=== PATIENT | male | born 1995 | race Asian ===

== ENCOUNTER 2022-02-26 10:46 | Emergency (ER) | payer MEDICAID, SELFPAY ==
[~2022-02-26] VITALS: Ht 170.2 cm; Wt 108.6 kg
[~2022-02-26 10:46] MED LIST: CYCL-394 PO; DIPH-423 PO; EPIN0.3P17 IM; FAMO-1 PO; NAPR-56 PO; PRED20TA PO
[2022-02-26] MEDS ORDERED: epiNEPHrine 1 mg/ml inj IM PRN (11:00)
[2022-02-26] MEDS: diphenhydrAMINE 50 mg/ml inj IV ONE (11:05)
[2022-02-26] MEDS: methylPREDNISolone sod succ 125mg/2ml vial IV ONE (11:07)
[2022-02-26] MEDS: famotidine/PF 10 mg/ml inj IV ONE (11:07)
--- NOTE | 2022-02-26 11:45 | NUR ---
pt resting in bed, states his throat feels better, but still feel swollen. will cont to monitor.
[2022-02-26] MEDS ORDERED: EPIN0.3P3 IM (12:18)
[2022-02-26 12:50] VITALS: BP 135/73
== END 2022-02-26 12:52 | disposition home or self-care (01) ==
LOC: ER 10:46
DX: T78.1XXA Other adverse food reactions, not elsewhere classified, initial encounter (principal); E78.00 Pure hypercholesterolemia, unspecified; L50.9 Urticaria, unspecified; R11.0 Nausea; Z79.899 Other long term (current) drug therapy; X58.XXXA Exposure to other specified factors, initial encounter; Y93.89 Activity, other specified; Y92.89 Other specified places as the place of occurrence of the external cause; Y99.8 Other external cause status
CPT/HCPCS: 96374; 96375; 99284; J1200; J2930; J3490

== ENCOUNTER 2023-12-18 19:42 | Emergency (ER) | payer MEDICAID ==
[~2023-12-18] VITALS: Ht 170.2 cm; Wt 109.1 kg
[~2023-12-18 19:42] MED LIST changes: +EPIN0.3P3 IM
[2023-12-18 20:19] VITALS: BP 144/76; PULSE 81; O2SAT 99
[2023-12-18] MEDS: cyclobenzaprine 10mg tablet PO ONE (21:19)
[2023-12-18] MEDS: LIDOcaine 5% patch TP ONE (21:20)
[2023-12-18 21:29] VITALS: RESP 16; TEMP 98.2
[2023-12-18] MEDS ORDERED: CYCL-1 PO (21:45)
[2023-12-18] MEDS ORDERED: HYDR-3965 PO (21:45)
[2023-12-18] MEDS ORDERED: LIDO700A32 TOP (21:45)
== END 2023-12-18 21:49 | disposition home or self-care (01) ==
LOC: ER 19:42
DX: M54.50 Low back pain, unspecified (principal); E78.00 Pure hypercholesterolemia, unspecified; Z91.013 Allergy to seafood; Z79.899 Other long term (current) drug therapy; V89.2XXA Person injured in unspecified motor-vehicle accident, traffic, initial encounter; Y93.89 Activity, other specified; Y92.89 Other specified places as the place of occurrence of the external cause; Y99.8 Other external cause status
CPT/HCPCS: 72074; 72100; 99284

== ENCOUNTER 2025-01-23 11:17 | Inpatient (IN) | payer OTHER, MEDICAID ==
[~2025-01-23] VITALS: Ht 170.2 cm; Wt 115.7 kg
[~2025-01-23 11:17] MED LIST changes: +CYCL-1 PO; +LIDO-52 TOP
--- NOTE | 2025-01-23 11:27 | Physician Documentation ---
History of Present Illness ~ Chief Complaint: Mental Health Eval Stated Complaint: MENTAL HEALTH EVAL Time Seen by MD: 11:24 Primary Medical Doctor: the medical center HPI 29-year-old male presenting with extreme depression and suicidal thoughts. Patient reports that he has a history of this however his symptoms significantly worsened since his dad this past October. Since that he has been having increasing suicidal thoughts and does not feel like he can go on anymore. As mentioned he does have a long history of this however he states that in his culture it is not appropriate to show any signs of emotional distress and he has been bottling it up this whole time. In 2014 he attempted to kill himself by hanging himself but states that the rope broke and it did not work. And that he denies any drug or alcohol use. Medication Reconciliation Allergies: Coded Allergies: shellfish derived (Unverified Allergy, Severe, 01/23/25) Scheduled Metformin Hcl (Metformin Hcl), 1 TAB PO DAILY, (Reported) Discontinued Medications Cyclobenzaprine HCl (Cyclobenzaprine HCl), 10 MG PO TID Discontinued Reason: Other Cyclobenzaprine* (Cyclobenzaprine*), 1 TAB PO HS Discontinued Reason: Other Diphenhydramine Hcl* (Benadryl*), 25 MG PO Q6H Discontinued Reason: Other Epinephrine (Epipen 2-Mike), 0.3 MG IM ONCE Discontinued Reason: Other Epinephrine (Epipen 2-Mike), 1 SYR IM ONCE PRN for allergies Discontinued Reason: Other Famotidine* (Pepcid*), 20 MG PO DAILY Discontinued Reason: Other Lidocaine (Lidoderm), 1 PATCH TOP DAILY Discontinued Reason: Other Naproxen (Naproxen), 500 MG PO Q12H Discontinued Reason: Other Prednisone* (Prednisone*), 40 MG PO DAILY Discontinued Reason: Other Prednisone* (Prednisone*), 60 MG PO DAILY Discontinued Reason: Other Past Medical History Past Medical History: High Cholesterol, Depression Past Surgical History: no surgical history Alcohol Use: None Drug Use: none Lives with: Mother Lives In: Home Occupation: student Review of Systems All Other Systems at this time: Reviewed and Negative Physical Exam Vital Signs: Temperature: 97.4, Source: Temporal, Heart Rate: 98, Respiratory Rate: 16, BP: 153/97, Pulse Oximetry: 99, Weight: 115.910 Oxygen Flow Rate: 0 Physical Exam I have reviewed the triage vitals. CONST: Well developed and well nourished. In no acute distress HENT: Head Atraumatic EYES: Pupils are equal, round and reactive to light. Normal conjunctiva NECK: Normal range of motion. Supple. CARDIO: Normal rate and regular rhythm. No murmurs, rubs, or gallops. S1, S2. PULM/CHEST: No respiratory distress. Lungs clear to auscultation. No wheeze ABD: Soft and nontender. Nondistended. Bowel sounds normal. No guarding. : Exam deferred MSK: No edema. No deformity. NEURO: Alert and oriented to person, place and time. Moving all extremities SKIN: Warm and dry. PSYCH: Normal mood and affect. Good eye contact. Progress Progress Note The patient is medically cleared. Results/Orders Results/Orders Orders - BRIANA FARAH MD 1799.11 (01/23/25 ) General Nursing Order (01/23/25 ) Completed Orders - BRIANA FARAH MD Cbc/Diff (01/23/25 11:24) MG (01/23/25 11:24) CMP (01/23/25 11:24) Drug Screen, Urine (01/23/25 11:24) Ethanol (01/23/25 11:24) Ua W/Microscopic, Cult If Ind (01/23/25 11:39) Regular Diet (01/23/25 Dinner) Lorazepam Tablet (Ativan Tablet) (01/23/25 13:45) Lorazepam Tablet (Ativan Tablet) (01/23/25 14:45) Vital Signs 01/23/25 01/23/25 11:19 11:56 Temp 97.4 Pulse 98 Resp 16 18 B/P (MAP) 153/97 Pulse Ox 99 O2 Flow Rate 0 Laboratory Tests Test 01/23/25 11:35 01/23/25 11:39 White Blood Count 7.4 Red Blood Count 6.67 H Hemoglobin 16.3 Hematocrit 50.3 Mean Corpuscular Volume 75.5 L Mean Corpuscular Hemoglobin 24.5 L Mean Corpuscular Hemoglobin Concent 32.4 L Red Cell Distribution Width 16.0 H Platelet Count 329 Mean Platelet Volume 8.4 Neutrophils (%) (Auto) 64.0 Lymphocytes (%) (Auto) 29.5 Monocytes (%) (Auto) 4.6 Eosinophils (%) (Auto) 1.2 Basophils (%) (Auto) 0.7 Neutrophils # (Auto) 4.8 Lymphocytes # (Auto) 2.2 Monocytes # (Auto) 0.3 Eosinophils # (Auto) 0.1 Basophils # (Auto) 0.0 CBC Comment Sodium Level 136 Potassium Level 4.3 Chloride Level 102 Carbon Dioxide Level 26.3 Anion Gap 8 Blood Urea Nitrogen 15 Creatinine 0.95 Estimated GFR/1.73 m2 > 90 BUN/Creatinine Ratio 15.8 Glucose Level 122 H Calcium Level 9.0 Magnesium Level 2.0 Total Bilirubin 1.2 H Aspartate Amino Transf (AST/SGOT) 36 Alanine Aminotransferase (ALT/SGPT) 96 H Alkaline Phosphatase 88 Total Protein 7.9 Albumin 3.7 Globulin 4.2 Albumin/Globulin Ratio 0.9 L Chemistry Comments Ethyl Alcohol Level < 10 Urine Specimen Description Cln catch midstream Urine Color Yellow Urine Clarity Clear Urine pH 6.0 Urine Specific Comer 1.025 Urine Protein >=300 H Urine Glucose (UA) Negative Urine Ketones Negative Urine Occult Blood Trace-intact Urine Nitrite Negative Urine Bilirubin Negative Urine Urobilinogen 0.2 Urine Leukocyte Esterase Negative Urine RBC 0-2 Urine WBC None seen Urine Squamous Epithelial Cells Few Urine Bacteria Few Urine Mucus Few Urine Culture Indicated Not ind Volume Urine Centrifuged 10 ml Urine Comment Urine Opiates Screen Negative Urine Methadone Screen Negative Urine Fentanyl Screen Negative Urine Barbiturates Screen Negative Urine Phencyclidine Screen Negative Urine Amphetamines Screen Negative Urine Benzodiazepines Screen Negative Urine Cocaine Screen Negative Urine Cannabinoids Screen Negative Drug Screen Comment Medical Decision Making Differential Diagnosis 29-year-old male presenting with suicidal ideations. His lab workup is unremarkable and the patient is medically cleared for psychiatric evaluation. Patient was assessed psychiatrically and admitted to the mental health unit. Departure Disposition: ADMITTED INPATIENT Impression: Primary Impression: Suicidal ideation Additional Impression: Depression Condition: Guarded Referrals: NO PRIMARY CARE PROVIDER (PCP) Critical Care Note Total Time (mins): 45 Critical Care Note The very real possibility of a deterioration of this patient's condition required the highest level of my preparedness for sudden, emergent intervention. I provided critical care services, which included medication orders, frequent reevaluations of the patient's condition and response to treatment, ordering and reviewing test results, and discussing the case with various consultants. Excludes time spent performing separately billable procedures. The critical care time associated with the care of the patient was. Signature Scribe Signature: 1 Attestation: 1 BRIANA FARAH MD Jan 23, 2025 11:27
[2025-01-23 11:53] LABS: MEAN PLATELET VOLUME 8.4 FL (7.4-10.4); RED CELL DISTRIBUTION WIDTH 16.0 % (11.5-14.5)
[2025-01-23 11:58] LABS: LEUKOCYTE ESTERASE ,URINE NEGATIVE (Neg); NITRITES, URINE NEGATIVE (Neg); OCCULT BLOOD,URINE TRACE-INTACT (Neg)
[2025-01-23 12:02] LABS: UA COLLECTION TYPE CLN CATCH MIDSTREAM
[2025-01-23 12:04] LABS: MUCUS STRANDS FEW /LPF (Neg); SQUAMOUS EPITHELIAL CELL,UR FEW /LPF (FEW)
[2025-01-23 12:07] LABS: CREATININE 0.95 MG/DL (0.60-1.10); TOTAL CARBON DIOXIDE 26.3 MMOL/L (24-32); eCRCL 107 ML/MIN; eGFR > 90 ML/MIN
[2025-01-23 12:11] LABS: ETHANOL < 10 MG/DL (<10)
[2025-01-23 12:13] LABS: URINE AMPHETAMINE SCREEN NEGATIVE (Neg); URINE BARBITUATE SCREEN NEGATIVE (Neg); URINE BENZODIAZEPINES SCREEN NEGATIVE (Neg); URINE CANNABINOID SCREEN NEGATIVE (Neg); URINE COCAINE SCREEN NEGATIVE (Neg); URINE METHADONE SCREEN NEGATIVE (Neg); URINE OPIATE SCREEN NEGATIVE (Neg); URINE PHENCYCLIDINE SCREEN NEGATIVE (Neg)
[2025-01-23] MEDS ORDERED: METF-900 PO (12:30)
[2025-01-23] MEDS ORDERED: METF-436 PO (20:18)
[2025-01-24] MEDS ORDERED: magnesium hydroxide 30ml (MOM) UD suspension PO PRN (01:15)
[2025-01-24] MEDS ORDERED: mag hydrox/Alum hydrox/simeth 30ml oral suspension PO PRN (01:15)
[2025-01-24] MEDS ORDERED: loperamide 2mg capsule PO PRN (01:15)
[2025-01-24] MEDS ORDERED: METF-1203 PO (06:38)
[2025-01-24] MEDS ORDERED: ATOR20TA66 PO (06:38)
[2025-01-24] MEDS ORDERED: OMEP20TA43 PO (06:39)
[2025-01-24 08:00] VITALS: BP 122/68; PULSE 90; RESP 12; TEMP 98; O2SAT 98
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
[2025-01-24] MEDS: BUPROPION HCL 150MG XL 24 HR 150 MG TAB PO SCH (09:24)
[2025-01-24 09:51] VITALS: RESP 12; O2SAT 98
[2025-01-24 19:00] VITALS: RESP 20; O2SAT 95
[2025-01-24 20:00] VITALS: BP 136/96; PULSE 98; RESP 18; TEMP 97.8; O2SAT 99
--- NOTE | 2025-01-24 22:09 | HISTORY AND PHYSICAL ---
History & Physical Providers to CC ~ History of Present Illness Reason for Admit\Complaint: Depression with suicidal ideation History of Present Illness This is the hospitalist history and physical exam on patients hospitalized at [facility]. The patient has no acute medical complaints is here due to severe depression since he lost his father in October of 2024. The patient did have a suicidal attempt in 2014 where he attempted to hang himself with was not successful as the rope broke Allergies: Coded Allergies: shellfish derived (Unverified Allergy, Severe, 01/23/25) Home Medications Home Medications Active Reported Omeprazole 20 Mg Tablet.dr 1 Tab PO DAILY Atorvastatin Calcium 20 Mg Tablet 1 Tab PO DAILY Metformin Hcl 500 Mg Tablet 1 Tab PO DAILY Past Medical History Past Medical History Hypogonadism Anxiety depression Prediabetes Hyperlipidemia Past Surgical History Surgical History Comment Bilateral earlobe keloid excision Ingrown toenail excision Family History Family History: FH: heart attack FATHER FHx: diabetes mellitus MOTHER Brother Brother Past Social History Social History Comment Does not smoke, drink alcohol, or use illicit drugs. ROS ROS Except for positives in the HPI the rest of the 14 point review systems is negative Exam Vitals: Vital Signs Date Time Temp Pulse Resp B/P (MAP) Pulse Ox O2 Delivery O2 Flow Rate FiO2 01/24/25 09:51 12 98 Room Air 01/24/25 08:00 98.0 90 122/68 (86) 01/23/25 18:06 0 General: Gen. No acute distress alert and oriented Lungs clear to ascultation bilaterally, no wheezes rales or rhonchi appreciated Heart normal sinus rhythm no murmurs rubs or clicks noted Abdomen soft nontender bowel sounds are normoactive Lower extremities no clubbing cyanosis, nor edema appreciated bilaterally Diagnostic Data Last Recorded Lab Results: 01/23/25 1135 01/23/25 1135 Advance Care Planning Advanced Care planning: N/A Problems: (1) Suicidal ideation Status: Acute Additional Plan # severe depression with suicidal ideation Followed by Psychiatry # hyperlipidemia Fasting lipid panel Continue atorvastatin # prediabetes Hemoglobin A1c is ordered # hypogonadism Stopped using testosterone replacement therapy recently. Hospitalist service will continue to follow the patient Date of Service: Jan 24, 2025 Billing Provider: NORMA PAUL DO Common Visit Codes: [id number] INP/OBS CARE (MOD) NORMA PAUL DO Jan 24, 2025 22:09
[2025-01-25 07:00] VITALS: BP 108/59; PULSE 65; RESP 16; TEMP 98; O2SAT 98
[2025-01-25 08:00] VITALS: RESP 16; RESP 20; O2SAT 95; O2SAT 98
[2025-01-25 11:46] LABS: MEAN PLATELET VOLUME 8.2 FL (7.4-10.4); RED CELL DISTRIBUTION WIDTH 16.3 % (11.5-14.5)
[2025-01-25 12:59] LABS: CHOL/HDL RATIO 5.8 (0.00-4.99); CREATININE 1.29 MG/DL (0.60-1.10); LDL CHOLESTEROL 133 MG/DL (50-100); TOTAL CARBON DIOXIDE 27.5 MMOL/L (24-32); eCRCL 79 ML/MIN; eGFR 66 ML/MIN
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
[2025-01-25 19:00] VITALS: RESP 18; O2SAT 99
[2025-01-25 20:00] VITALS: BP 135/87; PULSE 92; RESP 18; TEMP 98.2; O2SAT 99
[2025-01-26 07:00] VITALS: RESP 16; O2SAT 98
[2025-01-26 07:30] VITALS: BP 99/58; PULSE 65; RESP 16; TEMP 97.9; O2SAT 98
[2025-01-26] MEDS: BUPROPION HCL 150MG XL 24 HR 150 MG TAB PO SCH (07:38)
--- NOTE | 2025-01-26 07:58 | PROGRESS NOTE ---
Daily Progress Note Providers to CC ~ Antibiotic Timeout Antibiotic Ordered?: No Subjective Chief complaint I just feel really down Review of systems negative for all 10 systems reviewed Objective Vital Signs Date Time Temp Pulse Resp B/P (MAP) Pulse Ox O2 Delivery O2 Flow Rate FiO2 01/25/25 20:00 98.2 92 18 135/87 (103) 99 Room Air 01/23/25 18:06 0 Result Diagram: 01/25/25 1124 01/25/25 1124 HEENT normocephalic nontraumatic head PERRLA. EOMI. Gen. No acute distress alert and oriented Lungs clear to ascultation bilaterally, no wheezes rales or rhonchi appreciated Heart normal sinus rhythm no murmurs rubs or clicks noted Abdomen soft nontender bowel sounds are normoactive morbidly obese Lower extremities no clubbing cyanosis, nor edema appreciated bilaterally Problem\Assessment\Plan Problems/Diagnosis: (1) Suicidal ideation A/P (1) Suicidal ideation # severe depression with suicidal ideation Followed by Psychiatry # hyperlipidemia Fasting lipid panel Continue atorvastatin # prediabetes Hemoglobin A1c is ordered # hypogonadism Stopped using testosterone replacement therapy recently. Hospitalist service will continue to follow the patient Date of Service: Jan 26, 2025 Billing Provider: WILFREDO HERRMANN MD Common Visit Codes: [id number] INP/OBS CARE(LOW) WILFREDO HERRMANN MD Jan 26, 2025 07:58
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
[2025-01-26 19:00] VITALS: RESP 17
[2025-01-26 20:00] VITALS: RESP 17
[2025-01-27 07:30] VITALS: BP 112/58; PULSE 67; RESP 16; TEMP 98.3; O2SAT 96
[2025-01-27 08:00] VITALS: RESP 16; O2SAT 96
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
[2025-01-27 19:00] VITALS: RESP 16; O2SAT 97
[2025-01-27 20:00] VITALS: BP 141/69; PULSE 97; RESP 16; TEMP 98.3; O2SAT 96
[2025-01-28 07:00] VITALS: RESP 16; O2SAT 100
[2025-01-28 08:00] VITALS: BP 109/63; PULSE 77; RESP 14; TEMP 97.8; O2SAT 99
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
--- NOTE | 2025-01-28 18:48 | PROGRESS NOTE ---
Daily Progress Note Providers to CC ~ Antibiotic Timeout Antibiotic Ordered?: No Subjective Patient was seen in his room he was feeling better able to ambulate no new concerns Objective Vital Signs Date Time Temp Pulse Resp B/P (MAP) Pulse Ox O2 Delivery O2 Flow Rate FiO2 01/28/25 08:00 97.8 77 14 109/63 (78) 99 Room Air Result Diagram: 01/25/25 1124 01/25/25 1124 General-patient not in any acute distress, alert awake looks comfortable obese HEENT-atraumatic normocephalic, neck supple without elevated JVD, no thyromegaly or carotid bruit. No lymphadenopathy bilaterally. Eyes-no icterus or pallor seen in eyes Chest-clear to auscultation bilaterally, breathing nonlabored no tachypnea, no wheezing, no crepitation, no crackles. Heart-S1-S2 normal, regular heart rate no murmur Abdomen bowel sounds positive on auscultation, soft nondistended nontender no guarding, no rigidity Skin no active skin rash Neurology-grossly intact, nonfocal alert awake Extremity- no pedal edema able to move all 4 extremities Psychiatry - patient is not confused or agitated cooperated during physical examination Problem\Assessment\Plan Problems/Diagnosis: (1) Suicidal ideation (1) Suicidal ideation # severe depression with suicidal ideation Followed by Psychiatry # hyperlipidemia Fasting lipid panel Continue atorvastatin # prediabetes Hemoglobin A1c is 5.5 # hypogonadism Stopped using testosterone replacement therapy recently. Hospitalist service will continue to follow the patient Date of Service: Jan 28, 2025 Billing Provider: ARNAUD LIMA MD Common Visit Codes: [id number] INP/OBS CARE(LOW) ARNAUD LIMA MD Jan 28, 2025 18:48
[2025-01-28 19:00] VITALS: RESP 18; O2SAT 95
[2025-01-28 20:00] VITALS: BP 130/80; PULSE 96; RESP 18; TEMP 97.8; O2SAT 95
[2025-01-29 07:31] VITALS: RESP 14; O2SAT 97
[2025-01-29 08:00] VITALS: BP 97/47; PULSE 76; RESP 18; TEMP 98.9; O2SAT 95
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
[2025-01-29 19:30] VITALS: RESP 16; O2SAT 98
[2025-01-29 20:00] VITALS: BP 136/99; PULSE 90; RESP 16; TEMP 99.1; O2SAT 98
[2025-01-30 07:29] VITALS: RESP 16; O2SAT 97
[2025-01-30 08:00] VITALS: BP 116/71; PULSE 90; RESP 16; TEMP 97.6; O2SAT 94
[2025-01-30] MEDS ORDERED: BUPR300T53 PO (08:20)
[2025-01-30] MEDS ORDERED: QUET50TA24 PO (08:20)
[2025-01-30] MEDS ORDERED: ARIP5TAB53 PO (08:20)
--- NOTE | 2025-01-30 08:26 | DISCHARGE SUMMARY ---
Discharge Summary Providers to CC ~ Discharge Summary Admission Diagnosis: Depression Hospital Course DATE OF ADMISSION: 01/23/25 DATE OF DISCHARGE: 01/30/25 Condition on DC: Stable 2 or more antipsychotic used: Yes 2/more antipsychotic addressed: Yes Does Patient smoke: No Smoking education given.: No *Problems/Diagnosis: (1) Depression Status: Resolved (2) Suicidal ideation Status: Acute Total Time Spent on D/C: > 30 Minutes Counseling Services Smoking & Tobacco Cessation: N/A CODING VISIT-PSYCHIATRY Date of Service: Jan 30, 2025 Problem Qualifiers (1) Depression: TRACY ALVARADO [facility] Jan 30, 2025 08:26
== END 2025-01-30 11:27 | disposition home or self-care (01) | DRG 881 ==
LOC: ER 11:17 → ADULT MH 15:30 → UNDOADMIN 15:30 → ADULT MH 23:44
PROVIDERS: ADMIT Psychiatry & Neurology Psychiatry; ATTEND Psychiatry & Neurology Psychiatry
PROC: GZHZZZZ Group Psychotherapy (ICD-10-PCS; principal; 2025-01-29)
PROC: GZ51ZZZ Individual Psychotherapy, Behavioral (ICD-10-PCS; 2025-01-29)
DX: F32.A Depression, unspecified (principal); R45.851 Suicidal ideations; E66.3 Overweight; E78.00 Pure hypercholesterolemia, unspecified; G47.00 Insomnia, unspecified; R73.03 Prediabetes; F41.9 Anxiety disorder, unspecified; Z79.899 Other long term (current) drug therapy; Z82.49 Family history of ischemic heart disease and other diseases of the circulatory system; Z91.013 Allergy to seafood; Z88.8 Allergy status to other drugs, medicaments and biological substances; Z68.39 Body mass index [BMI] 39.0-39.9, adult
CPT/HCPCS: 36415; 80053; 80061; 80305; 80320; 81001; 83036; 83735; 84443; 85025; 87081; 99291; Q0177